=== PATIENT | female | born 2000 | race Caucasian/White ===

== ENCOUNTER 2022-02-12 11:21 | Emergency (ER) | payer OTHER ==
[~2022-02-12] VITALS: Ht 160 cm; Wt 79.4 kg
[2022-02-12] MEDS ORDERED: ONDANSETRON ODT4 MG PO (11:49)
== END 2022-02-12 12:18 | disposition home or self-care (01) ==
LOC: ED 11:21
DX: S06.0X0A Concussion without loss of consciousness, initial encounter (principal); W22.8XXA Striking against or struck by other objects, initial encounter; Z88.0 Allergy status to penicillin
CPT/HCPCS: A9270